=== PATIENT | female | born 1955 | race Caucasian/White ===

== ENCOUNTER → 2016-12-17 | Outpatient (CLI) | payer OTHER ==
[~2016-12-17] MED LIST: BUPRTAB51 PO; GADAVIST IV PRN; HRBLS PO; TRAZ50TA35 PO; VALA500T60 PO
--- NOTE | 2016-12-18 14:24 | MAMMOGRAPHY REPORT ---
BREAST MRI OF BOTH BREASTS : 12/17/2016 CLINICAL HISTORY: 61-year-old woman with bilateral breast implants presents for assessment of implan t integrity. Also contrast enhancement to exclude malignancy. COMPARISON: Prior mammograms 06/01/2009. Technique: Using a 1.5 Sunshine magnet and dedicated breast coil, multisequence axial images were obtai velasquez through the breasts. After uneventful IV administration of 6 mL of Gadavist, dynamic multiphase contrast-enhanced axial images, and sagittal postcontrast were obtained. Temporal subtraction axia l images and 3-D MIP images are provided. Additional axial T2 STIR water, sagittal T2 STIR, sagitta l T2 with fat saturation images were obtained to evaluate implant integrity. Everything was then re viewed on a 3-D workstation, [employer]. Findings: Bilateral retroglandular silicone implants are in place. The left implant is located slig htly superior with regard to the right implant. A bulbous lobulation also extends off the superior pole of the left implant, which was present dating back to the 2009 mammogram. There is evidence of intracapsular and extracapsular implant rupture bilaterally. A lymph node is identified in the left upper outer quadrant, correlating with the benign intramammar y lymph node seen on the 2009 mammogram. No suspicious enhancing mass, non-mass enhancement or susp icious kinetics is seen bilaterally. There is no significant background parenchymal enhancement. N o suspicious axillary lymphadenopathy is seen. IMPRESSION: ACR BI-RADS CATEGORY 2: BENIGN 1. Intracapsular and extracapsular rupture of both retroglandular silicone implants. 2. No MRI evidence of malignancy in the breasts. 3. The patient is overdue for annual mammography, if no prior outside mammograms have been obtained since the provided 2008 exam. The patient will receive written notification of the results. Georgette Garcia M.D. 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
== END | disposition home or self-care (01) ==
LOC: C.MRI 09:04
PROVIDERS: ATTEND Plastic Surgery
DX: T85.49XA Other mechanical complication of breast prosthesis and implant, initial encounter (principal); Y83.1 Surgical operation with implant of artificial internal device as the cause of abnormal reaction of the patient, or of later complication, without mention of misadventure at the time of the procedure